=== PATIENT | female | born 1975 | race American Indian/Alaskan Native ===

== ENCOUNTER 2019-02-07 12:12 | Emergency (ER) | payer OTHER ==
--- NOTE | 2019-02-07 12:21 | Emergency Department Report ---
Blank Doc - Documentation Documentation: This is a 43-year-old female that presents with a fall from 12 stairs. Denies any LOC. C/O C/T/L spine pain, right hip, right tib-fib, head, and right shoulder. This initial assessment/diagnostic orders/clinical plan/treatment(s) is/are subject to change based on patient's health status, clinical progression and re- assessment by fellow clinical providers in the ED. Further treatment and workup at subsequent clinical providers discretion. Patient/guardians urged not to elope from the ED as their condition may be serious if not clinically assessed and managed. Initial orders include: 1- Patient sent to [facility] for further evaluation and treatment 2- CT and Xrays
--- NOTE | 2019-02-07 14:08 | Cat Scan Report ---
PROCEDURE: CT HEAD/BRAIN WO CON TECHNIQUE: Computerized tomography of the head was performed without contrast material. CT DOSE LENGTH PRODUCT: 929 mGycm HISTORY: head/neck pain s/p fall COMPARISONS: None . FINDINGS: Unenhanced CT of the brain was performed and demonstrates no acute intracranial hemorrhage, extra-axial fluid collection, midline shift or mass effect. The ventricles and basal cisterns are no t effaced. The mastoid air cells and middle ears appear clear. There is no evidence of acute sinusitis. The bony calvarium appears intact. IMPRESSION: No acute intracranial hemorrhage This document is electronically signed by Carlso Loredo MD., February 07 2019 02:06:40 PM ET
--- NOTE | 2019-02-07 14:10 | Cat Scan Report ---
PROCEDURE: CT CERVICAL SPINE WO CON TECHNIQUE: Computerized tomography of the cervical spine was performed from the skull base to T1 wit hout contrast material. CT DOSE LENGTH PRODUCT: 690.7 mGycm HISTORY: head/neck pain s/p fall FINDINGS: Unenhanced CT of the cervical spine was performed and data was reformatted into sagittal an d coronal planes. These images demonstrate no fracture or malalignment of the cervical spine. The prevertebral soft tis sues are within normal limits. The intervertebral disc space heights appear preserved. The pulmonary apices appear clear. IMPRESSION: No fracture or malalignment of the cervical spine This document is electronically signed by Carlos Loredo MD., February 07 2019 02:08:36 PM ET
--- NOTE | 2019-02-07 14:18 | XRay Report ---
PROCEDURE: XR SPINE LUMBOSACRAL 2-3V TECHNIQUE: Lumbar spine radiographs, views. HISTORY: pain s/p fall COMPARISONS: None . FINDINGS: AP and lateral views of the lumbar spine were acquired and demonstrate no fracture or malal ignment of the lumbar spine. The intervertebral disc space heights appear preserved. IMPRESSION: No fracture is seen in the lumbar spine This document is electronically signed by Carlos Loredo MD., February 07 2019 02:16:41 PM ET
--- NOTE | 2019-02-07 14:19 | XRay Report ---
PROCEDURE: XR SHOULDER 2+V RT HISTORY: pain s/p fall COMPARISONS: None . FINDINGS: AP views of the right shoulder were acquired in internal and external rotation as well as s capular Y view. These images demonstrate no fracture or malalignment of the right shoulder. The glenohumeral and acro mioclavicular joints are normally located. IMPRESSION: No fracture is seen in the right shoulder This document is electronically signed by Carlos Loredo MD., February 07 2019 02:17:33 PM ET
--- NOTE | 2019-02-07 14:21 | XRay Report ---
PROCEDURE: XR TIBIA FIBULA 2V RT TECHNIQUE: tibia and fibula radiographs, AP and lateral views. HISTORY: pain s/p fal COMPARISONS: None. FINDINGS: AP and lateral views of the right tibia and fibula were acquired and demonstrate no fractur e of the right tibia or fibula. There is a plantar calcaneal spur, 0.7 cm. IMPRESSION: No fracture is seen in the right tibia or fibula. This document is electronically signed by Carlos Loredo MD., February 07 2019 02:18:36 PM ET
--- NOTE | 2019-02-07 14:21 | XRay Report ---
PROCEDURE: XR SPINE THORACIC 2V TECHNIQUE: Thoracic spine radiographs, including AP and lateral projections. HISTORY: pain s/p fall COMPARISONS: None FINDINGS: AP and lateral views of the thoracic spine were acquired. No fracture is seen in the thorac ic spine. There is mild anterior endplate remodeling at all levels of the midthoracic IMPRESSION: No fracture is seen in the thoracic spine This document is electronically signed by Carlos Loredo MD., February 07 2019 02:19:22 PM ET
--- NOTE | 2019-02-07 14:22 | XRay Report ---
PROCEDURE: XR HIP 2-3V RT TECHNIQUE: hip radiographs, views. HISTORY: pain s/p fall COMPARISONS: None FINDINGS: AP view of the pelvis was acquired as well as lateral view of the right hip. No fracture is seen pelvis or right hip. Hip joint space appears preserved bilaterally. IMPRESSION: No fracture is seen in the pelvis or right hip This document is electronically signed by Carlos Loredo MD., February 07 2019 02:19:58 PM ET
[2019-02-07] MEDS ORDERED: TYLENOL #3 PO ONE (14:23)
[2019-02-07] MEDS ORDERED: ZOFRAN ODT PO ONE (14:24)
--- NOTE | 2019-02-07 14:30 | Emergency Department Report ---
ED Fall HPI - General Chief Complaint: Fall Stated Complaint: FALL INJURY/PAIN ALL OVER Time Seen by Provider: 02/07/19 12:16 Source: patient Mode of arrival: Wheelchair - History of Present Illness Initial Comments: Pt is a 43 yo female who presents to the ED with c/o a fall that occurred yesterday at 12 PM. The patient states she was chasing her dog down the stairs and states she tripped and fell down the steps. She states they were concrete steps and she fell down approximately 9-12 steps. The patient states she fell onto her right side. She has associated NG, neck pain, back pain, right shoulder pain, right hip pain, and right stubbs pain. The patient states that today she had N/V and a couple of episodes of lightheadedness when she stood up quickly. The patient has been ambulatory without difficulty. Pt denies any numbness or weakness. She states she had HTN in but not since then. She denies any PMHx or being on daily medications. She denies any drug allergies. The patient states her tetanus immunization has been within the last year. - Related Data Previous Rx's Medication Instructions Recorded Last Taken Type Acetaminophen/Codeine [Tylenol 1 tab PO Q6H PRN #10 tab 02/07/19 Unknown Rx /Codeine # 3 tab] Cyclobenzaprine [Flexeril] 10 mg PO QHS PRN #10 tablet 02/07/19 Unknown Rx Ibuprofen 800 mg PO Q6HR PRN #20 tablet 02/07/19 Unknown Rx Ondansetron [Zofran Odt] 4 mg PO Q8HR PRN #10 tab.rapdis 02/07/19 Unknown Rx Allergies Allergy/AdvReac Type Severity Reaction Status Date / Time No Known Allergies Allergy Unverified 02/07/19 12:20 ED Review of Systems ROS: Stated complaint: FALL INJURY/PAIN ALL OVER Other details as noted in HPI Comment: All other systems reviewed and negative ED Past Medical Hx - Past Medical History Previous Medical History?: No - Social History Smoking Status: Never Smoker Substance Use Type: None - Medications Home Medications: Home Medications Medication Instructions Recorded Confirmed Last Taken Type Acetaminophen/Codeine [Tylenol 1 tab PO Q6H PRN #10 tab 02/07/19 Unknown Rx /Codeine # 3 tab] Cyclobenzaprine [Flexeril] 10 mg PO QHS PRN #10 tablet 02/07/19 Unknown Rx Ibuprofen 800 mg PO Q6HR PRN #20 tablet 02/07/19 Unknown Rx Ondansetron [Zofran Odt] 4 mg PO Q8HR PRN #10 tab.rapdis 02/07/19 Unknown Rx ED Physical Exam - General Limitations: No Limitations General appearance: alert, in no apparent distress - Head Head exam: Present: atraumatic, normocephalic - Eye Eye exam: Present: normal appearance, PERRL, EOMI - ENT ENT exam: Present: mucous membranes moist - Neck Neck exam: Present: normal inspection, full ROM, other (TTP over the right C- spine paraspinal muscular tenderness, no step offs, no deformities, no midline tenderness) - Respiratory Respiratory exam: Present: normal lung sounds bilaterally. Absent: respiratory distress, wheezes, rales, rhonchi, stridor, chest wall tenderness, accessory muscle use, decreased breath sounds, prolonged expiratory - Cardiovascular Cardiovascular Exam: Present: regular rate, normal rhythm, normal heart sounds. Absent: systolic murmur, diastolic murmur, rubs, gallop - GI/Abdominal GI/Abdominal exam: Present: soft, normal bowel sounds. Absent: distended, tenderness, guarding, rebound, rigid - Extremities Exam Extremities exam: Present: other (small abrasion to the right anterior stubbs, TTP over the right, lateral shoulder, FROM of the right shoulder, TTP over the right lateral hip, FROM of the right hip, TTP over the right anterior stubbs, FROM of the right knee and right ankle, neurovascularly intact throughout, pulses intact in the BUE/BLE) - Back Exam Back exam: Present: normal inspection, full ROM, paraspinal tenderness (TTP over the right T-spine and L-spine paraspinal muscular region, no step offs, no deformities). Absent: vertebral tenderness - Neurological Exam Neurological exam: Present: alert, oriented X3, CN II-XII intact, normal gait, other (normal finger to nose, normal heel to stubbs, equal equipment engineer strength, 5/5 strength in the BUE/BLE, sensation intact, no focal neuro deficit). Absent: motor sensory deficit - Psychiatric Psychiatric exam: Present: normal affect, normal mood - Skin Skin exam: Present: warm, dry ED Course Vital Signs 02/07/19 02/07/19 12:15 15:03 Temperature 98.1 F Pulse Rate 101 H 59 L Respiratory 22 16 Rate Blood Pressure 161/121 Blood Pressure 156/101 [Left] O2 Sat by Pulse 100 97 Oximetry ED Medical Decision Making - Radiology Data Radiology results: report reviewed XR of the right tib fib, XR of the t-spine, XR of the right shoulder, XR of the lumbar spine, XR of the right hip, CT of the head, CT of the C-spine all with no acute process pt signed consent form for radiation in a childbearing age - Medical Decision Making Pt is a 43 yo female who presents to the ED with c/o a fall that occurred yesterday at 12 PM. The patient states she was chasing her dog down the stairs and states she tripped and fell down the steps. She states they were concrete steps and she fell down approximately 9-12 steps. The patient states she fell onto her right side. She has associated NG, neck pain, back pain, right shoulder pain, right hip pain, and right stubbs pain. The patient states that today she had N/V and a couple of episodes of lightheadedness when she stood up quickly. The patient has been ambulatory without difficulty. She states she had HTN in but not since then. She denies any PMHx or being on daily medications. She denies any drug allergies. The patient states her tetanus immunization has been within the last year. XR of the right tib fib, XR of the t-spine, XR of the right shoulder, XR of the lumbar spine, XR of the right hip, CT of the head, CT of the C-spine all with no acute process. No neuro deficit on exam, pt is neurovascularly intact throughout. Due to hitting her head, pt given head injury precautions and discussed with pt. Will have pt follow up with her PCP in the next 2-3 days. Advised pt to return to the ED immediately for vision changes, numbness, weakness, or any new or worsening symptoms. Pt given anti- inflammatory, tylenol 3 for pain, muscle relaxer, and zofran. Advised to only use the muscle relaxer at night and do not drive, work, or operate heavy machinery while taking. May use ice, elevation, rest, heating pad, epsom salt bath. Discussed with pt the elevation in her blood pressure and that she must follow up with primary care in the next 2-3 days. Pt does not want to be started on blood pressure medication at this time, she states she believes it is due to stress from worrying about her dog and the soreness from the fall. - Differential Diagnosis fx, sprain, strain, dislocation, bleed Critical care attestation.: If time is entered above; I have spent that time in minutes in the direct care of this critically ill patient, excluding procedure time. ED Disposition Clinical Impression: Muscle strain, Right hip pain, Pain in right stubbs, Abrasion, Elevated blood pressure reading Fall Qualifiers: Encounter type: initial encounter Qualified Code(s): W19.XXXA - Unspecified fall, initial encounter Concussion Qualifiers: Encounter type: initial encounter Loss of consciousness presence/duration: without LOC Qualified Code(s): S06.0X0A - Concussion without loss of consciousness, initial encounter Right shoulder pain Qualifiers: Chronicity: acute Qualified Code(s): M25.511 - Pain in right shoulder Disposition: DC-01 TO HOME OR SELFCARE Is pt being admited?: No Does the pt Need Aspirin: No Condition: Stable Instructions: Muscle Strain (ED), Concussion (ED), Post Concussion Syndrome (ED), Arthralgia (ED) Additional Instructions: Please follow up with a primary care doctor in the next 2-3 days will also need to discuss with your primary care the elevation in your blood pressure. Return to the emergency room immediately for vision deficit, numbness, weakness, or any new or worsening symptoms. Take medication as prescribed. Only use the muscle relaxer at night as needed and do not drive, work, or operate heavy machinery while taking. Do not drive, work, or operate heavy machinery while taking tylenol with codeine. May use ice, elevation, rest, heating pad, epsom salt bath. Prescriptions: Cyclobenzaprine [Flexeril] 10 mg PO QHS PRN #10 tablet PRN Reason: Muscle Spasm Ibuprofen 800 mg PO Q6HR PRN #20 tablet PRN Reason: Pain, Moderate (4-6) Acetaminophen/Codeine [Tylenol /Codeine # 3 tab] 1 tab PO Q6H PRN #10 tab PRN Reason: Pain , Severe (7-10) Ondansetron [Zofran Odt] 4 mg PO Q8HR PRN #10 tab.rapdis PRN Reason: Nausea And Vomiting Referrals: CORNELIUS SIMMONS MD [Staff Physician] - 2-3 Days Time of Disposition: 14:44 Print Language: CITIZEN OF [place]
[2019-02-07 15:03] VITALS: BP 156/101
== END 2019-02-07 15:06 | disposition home or self-care (01) ==
LOC: ED 12:12
DX: S06.0X0A Concussion without loss of consciousness, initial encounter (principal); S80.811A Abrasion, right lower leg, initial encounter; M25.551 Pain in right hip; M25.511 Pain in right shoulder; M54.2 Cervicalgia; W01.0XXA Fall on same level from slipping, tripping and stumbling without subsequent striking against object, initial encounter; Y93.89 Activity, other specified; Y92.89 Other specified places as the place of occurrence of the external cause; Y99.8 Other external cause status
CPT/HCPCS: 70450; 72070; 72100; 72125; Q0162